=== PATIENT | female | born 1955 | race Caucasian/White ===

== ENCOUNTER 2017-03-01 15:53 | Emergency (ER) | payer SELFPAY ==
[~2017-03-01] VITALS: Ht 167.6 cm; Wt 73.3 kg
[2017-03-01] MEDS ORDERED: FAMOTIDINE 20 MG/2 ML ONE (16:00)
[2017-03-01] MEDS ORDERED: EPINEPHRINE 1 MG/ML, 1ML ONE (16:00)
[2017-03-01] MEDS ORDERED: methylPREDNISolone SOD SUCC 40 MG/ML ONE (16:00)
[2017-03-01] MEDS ORDERED: DIPHENHYDRAMINE 50 MG/ML, 1ML ONE (16:00)
[2017-03-01] MEDS ORDERED: DIPHENHYDRAMINE 50 MG/ML, 1ML IVPush ONE (17:00)
[2017-03-01] MEDS ORDERED: SODIUM CHLORIDE FLUSH 10ML SYR IVF ONE (17:00)
[2017-03-01] MEDS ORDERED: FAMOTIDINE 20 MG/2 ML IVPush ONE (17:00)
[2017-03-01] MEDS ORDERED: DEXAMETHASONE 4 MG/ML, 1ML IVPush ONE (17:00)
[2017-03-01 17:07] LABS: ASPARTATE AMINO TRANSFERASE 12 U/L (15-37); BLOOD UREA NITROGEN 11 mg/dL (7-18)
[2017-03-01] MEDS ORDERED: DEXAMETHASONE 4 MG/ML, 5ML ONE (17:08)
[2017-03-01 17:18] VITALS: BP 147/100
== END 2017-03-01 18:35 | disposition home or self-care (01) ==
LOC: ED 18:29
DX: L30.9 Dermatitis, unspecified (principal); M25.559 Pain in unspecified hip; G89.29 Other chronic pain; Z90.710 Acquired absence of both cervix and uterus; F17.200 Nicotine dependence, unspecified, uncomplicated
CPT/HCPCS: 36415; 70360; 80053; 85025; 85651; 86140; 93005; 96374; 96375; 99285; J1100; J1200; S0028

== ENCOUNTER 2020-02-19 04:21 | Emergency (ER) | payer MEDICARE ==
[~2020-02-19] VITALS: Ht 165.1 cm; Wt 83.0 kg
[2020-02-19 04:23] VITALS: BP 174/93
[2020-02-19] MEDS ORDERED: PHENYLEPHRINE NASAL 1%, 15ML SPRAY ONE (04:37)
--- NOTE | 2020-02-19 04:39 | NUR ---
pt sitting up in chair, call light within reach. pa at pt's bedside for eval
[2020-02-19] MEDS ORDERED: SIMV5TAB14 PO (04:54)
[2020-02-19] MEDS ORDERED: SERT25TA3 PO (04:54)
== END 2020-02-19 06:15 | disposition home or self-care (01) ==
LOC: ED 05:53
DX: R04.0 Epistaxis (principal); E78.00 Pure hypercholesterolemia, unspecified; G89.29 Other chronic pain
CPT/HCPCS: 99282